=== PATIENT | male | born 1930 | race Caucasian/White ===

== ENCOUNTER → 2016-08-29 | Outpatient (CLI) | payer OTHER | LOC: FIMAGING 08:36 | PROVIDERS: ATTEND Specialist | DX: Z12.89 Encounter for screening for malignant neoplasm of other sites (principal); R97.20 Elevated prostate specific antigen [PSA]; C61 Malignant neoplasm of prostate | CPT/HCPCS: 78306; A9503 ==

== ENCOUNTER 2017-06-01 10:44 | Observation (INO) | payer OTHER ==
--- NOTE | 2017-05-31 16:58 | GHP ---
[f rep st] PREOP HISTORY AND PHYSICAL DATE OF ADMISSION: 06/01/2017 HISTORY OF PRESENT ILLNESS: This is a gentleman who has had a prior prostate cancer diagnosed in 0 with a rising PSA. He has urinary obstruction and has been on androgen blockade. He was originall y referred by Dr. Kami Monaco because of the rising PSA and prostate cancer. He had a PSA as o f 06/14/2016 of 230, and he has had urinary obstruction with urodynamics and cystoscopy and ultrasoun d that revealed prostatic obstruction. He is in need of a TUR of the prostate. Indication, complica tions, options have been discussed. Written and verbal consent were obtained and he is admitted for the above procedure. PAST MEDICAL HISTORY: He has had prostate cancer and urinary hesitancy. PAST SURGERIES: Diverticulectomy. MEDICATIONS: Brimonidine ophthalmic drops, dutasteride, Lupron, levothyroxine, lisinopril, hydrochlo rothiazide, Prolia, trazodone and warfarin. ALLERGIES: To Effexor. REVIEW OF SYSTEMS: Negative cardiac, respiratory, GI and endocrine. PHYSICAL EXAMINATION: VITAL SIGNS: Stable. CHEST: Clear. HEART: Regular rate and rhythm. ABDOM EN: Normal. No organomegaly, rebound or guarding. LOWER EXTREMITIES: Normal. He has had a prosta te exam is compatible with his prostate cancer. DATABASE: His prostate volume by ultrasound and August 17, 2016 was approximately 50 g. He had a postv oid residual in April 2017 of 142 mL. He had a Trupti score prostate cancer 6 in 2009. PLAN: At the present time, he is admitted for the transurethral resection of prostate. Indication, complications, options have been discussed. Written and verbal consent were obtained. /[id number]/MODL
--- NOTE | 2017-06-01 07:41 | PDHPUP ---
History & Physical Update H&P update statement: This history and physical update is based on an assessment of the patient which was completed after admission or registration (within 24 hours), but prior to the surgery/procedure. H&P update: H&P reviewed & patient examined, no change in patient's condition since H&P completed
[~2017-06-01 10:44] MED LIST: ceFAZolin 2 GM/SWFI 2 GM/20 ML SYR IVP ONE
[2017-06-01] MEDS ORDERED: LR 1,000 ML IV ONE (11:04)
[2017-06-01] MEDS ORDERED: LIDOCAINE 2% JELLY 20 ML (UROJECT) ONE (11:18)
[2017-06-01 11:45] LABS: INR 1.08 (0.83-1.16); PROTIME(PATIENT) 14.2 SEC (12.0-15.0)
[2017-06-01] MEDS ORDERED: ceFAZolin 2 GM/SWFI 20 ML SYR IVP ONE (11:46)
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
[2017-06-01] MEDS ORDERED: fentaNYL 100 MCG/2 ML INJ ONE (12:12)
[2017-06-01] MEDS ORDERED: PROPOFOL 200 MG/20 ML VIAL ONE (12:12)
[2017-06-01] MEDS ORDERED: LIDOCAINE 2% 5 ML SDV ONE (12:12)
[2017-06-01] MEDS ORDERED: NALOXONE HCL 0.4 MG/ML INJ IVP PRN (13:25)
[2017-06-01] MEDS ORDERED: ACETAMINOPHEN 500 MG TAB PO PRN (13:25)
[2017-06-01] MEDS ORDERED: fentaNYL 100 MCG/2 ML INJ IVP PRN (13:25)
[2017-06-01] MEDS ORDERED: ONDANSETRON 4 MG/2 ML VIAL IVP PRN (13:25)
[2017-06-01] MEDS ORDERED: LABETALOL HCL 5 MG/ML 20 ML MDV IVP PRN (13:25)
--- NOTE | 2017-06-01 13:27 | POSTANESTH ---
Post Anesthetic Evaluation Cardiovascular Status: Normal, Stable Respiratory Status: Normal, Stable Level of Consciousness/Mental Status: Can Participate in Eval Pain Control: Adequate, Prn Tx Ordered Nausea/Vomiting Control: Adequate, Prn Tx Ordered Complications Possibly Related to Anesthesia: None Noted
[2017-06-01] MEDS ORDERED: HYDROCODONE/APAP 5/325 TAB PO PRN (13:31)
[2017-06-01] MEDS ORDERED: OPIUM/BELLADONNA ALKALO SUPP PR PRN (13:31)
--- NOTE | 2017-06-01 13:36 | POSTOPPROG ---
Post Op Note Date of Operation: 06/01/17 Surgeon: Simeon Sylvester Anesthesia: LMA Pre-op Diagnosis: prostate cancer, bladder obstruction Procedure: turp Inf/Abcess present in the surg proc area at time of surgery?: No EBL: Minimal Specimen(s): dictated
--- NOTE | 2017-06-01 13:51 | GOP ---
[f rep st] OPERATIVE REPORT DATE OF OPERATION: SURGEON: Simeon Sylvester MD ANESTHESIOLOGIST: Eric Bacon DO. PREOPERATIVE DIAGNOSIS: Prostate cancer with urinary obstruction. POSTOPERATIVE DIAGNOSIS: Prostate cancer with urinary obstruction. PROCEDURE PERFORMED: Transurethral resection of the prostate. FINDINGS: SPECIMENS: Sent to pathology. I will talk to his about the findings. DESCRIPTION OF PROCEDURE: After undergoing general anesthesia, prepped and draped in normal sterile fashion in dorsal lithotomy position. A 22-Setswana resectoscope passed into the bladder. He had a bu lbar urethral stricture that had been dilated, and then he had an intravesical lobe of the prostate w ith obstruction and +4 trabeculation of the bladder. TUR was started by taking down the intravesical lobe of the prostate, right lateral lobe, and right portion of the posterior lobe. Left lateral lob e and left portion of the posterior lobe resected. The bladder was Ellik'd free of all chips and juana ts. Visualization revealed no residual chips or clots. External sphincter approximated at the midli ne symmetrically. Ureteral orifices were preserved. He did have a nodular mass that appeared to be submucosal lateral to the right ureteral orifice. I elected not to resect, because I felt it probabl y could be prostate cancer and probably extended into the base of the bladder, but it was not causing any encroachment on the ureteral orifice. Uro-Jet placed in his urethra. A 22 3-way catheter was p assed into the bladder, balloon inflated, and he tolerated the procedure well. He will be admitted f or postoperative care for 24 hours observation. CIRCULATING STAFF: Blayne Richards. SCRUB STAFF: Luigi. /[id number]/MODL
[2017-06-01] MEDS: D5W LR 1,000 ML IV SCH (16:29)
[2017-06-01] MEDS ORDERED: LATANOPROST 0.005% 2.5 ML OPHT DROPS EACHEYE SCH (21:00)
[2017-06-01] MEDS ORDERED: traZODone 50 MG TAB PO SCH (21:00)
[2017-06-01] MEDS ORDERED: BRIMONIDINE 0.1% 5 ML OPHT.BTL RTEYE SCH (21:00)
[2017-06-02] MEDS: D5W LR 1,000 ML IV SCH (05:49)
--- NOTE | 2017-06-02 07:35 | SOAPPROG ---
SOAP Progress Note Assessment/Plan: Assessment: Bladder obstruction Acute POD #1 TURP, path pending Primary malignant neoplasm of prostate Acute on [facility] rx as outpatient Plan: DC lopez and home after voiding. 06/02/17 07:33 Subjective: no problem Objective: Vital Signs Temp Pulse Resp BP Pulse Ox 36.9 C 65 16 100/59 L 97 06/02/17 05:56 06/02/17 05:56 06/02/17 05:56 06/02/17 05:56 06/02/17 05:56 Laboratory Results 06/01/17 11:28 06/01/17 06/02/17 06/03/17 05:59 05:59 05:59 Intake Total 1328 Output Total 4650 Balance -3322 PT 14.2 SEC (12.0-15.0) 06/01/17 11:28 INR 1.08 (0.83-1.16) 06/01/17 11:28 Physical Exam - Physical Exam General Appearance: alert Respiratory: No respiratory distress Cardiac/Chest: regular rate, rhythm Abdomen: soft Back: No CVA tenderness Neuro/Psych: alert, oriented x 3 ICD10 Worksheet Patient Problems: Problems Problem Status Onset Bladder obstruction Acute Primary malignant neoplasm of prostate Acute - ICD10 Problem Qualifiers (1) Primary malignant neoplasm of prostate (2) Bladder obstruction
--- NOTE | 2017-06-02 07:58 | GDS ---
[f rep st] DISCHARGE SUMMARY ADMISSION DIAGNOSIS: Prostate cancer with bladder outlet obstruction. DISCHARGE DIAGNOSIS: Prostate cancer with bladder outlet obstruction. PROCEDURES DURING THE HOSPITALIZATIONS: TUR of the prostate. HOSPITAL COURSE: The gentleman on a.m. of admission, had the above procedure performed. He is disch arged home postop day 1 without the catheter. Pathology pending. He is to see me in 3 weeks. I hav e asked that he resume his Coumadin starting Monday of next week, and if any concerns or problems should contact us at the office at [phone]. /[id number]/MODL
[2017-06-02 08:02] VITALS: O2SAT 95
[2017-06-02] MEDS ORDERED: LEVOTHYROXINE 75 MCG PO SCH (09:00)
[2017-06-02] MEDS ORDERED: LISINOPRIL/HCTZ 20/12.5MG 1 EA TAB PO SCH (09:00)
[2017-06-02 11:13] VITALS: TEMP 97.9
[2017-06-02 11:59] VITALS: BP 125/59; PULSE 66; RESP 16
== END 2017-06-02 12:22 | disposition home or self-care (01) ==
LOC: F3N 10:44 → INTOOBSV 10:44 → F1N 14:37
PROVIDERS: ADMIT Specialist; ATTEND Specialist
PROC: 0VT08ZZ Resection of Prostate, Via Natural or Artificial Opening Endoscopic (ICD-10-PCS; principal; 2017-06-01 12:00)
DX: C61 Malignant neoplasm of prostate (principal); N13.8 Other obstructive and reflux uropathy; R97.20 Elevated prostate specific antigen [PSA]; N40.1 Benign prostatic hyperplasia with lower urinary tract symptoms; R33.9 Retention of urine, unspecified; R35.1 Nocturia; R39.11 Hesitancy of micturition; I10 Essential (primary) hypertension; E03.9 Hypothyroidism, unspecified; Z87.891 Personal history of nicotine dependence
CPT/HCPCS: 52601; 88305; G0378; J0690; J2704; J3010

== ENCOUNTER → 2017-11-27 | Outpatient (CLI) | payer OTHER | LOC: FIMAGING 09:52 | PROVIDERS: ATTEND Specialist | DX: Z12.89 Encounter for screening for malignant neoplasm of other sites (principal); Z85.46 Personal history of malignant neoplasm of prostate | CPT/HCPCS: 78306; A9503 ==

== ENCOUNTER → 2018-07-18 | Outpatient (CLI) | payer OTHER | LOC: FIMAGING 10:23 | PROVIDERS: ATTEND Physician Assistant Medical | DX: R93.7 Abnormal findings on diagnostic imaging of other parts of musculoskeletal system (principal); I71.4 Abdominal aortic aneurysm, without rupture; Z85.46 Personal history of malignant neoplasm of prostate | CPT/HCPCS: 71046; 72100; 78306; A9503 ==